=== PATIENT | female | born 1975 | race Hispanic/Latino ===

== ENCOUNTER 2017-03-31 11:27 | Outpatient (CLI) | payer MEDICARE ==
--- NOTE | 2017-03-31 13:49 | Cat Scan Report ---
FINAL REPORT EXAM: CT ANGIO HEAD HISTORY: HX OF CVA AND SAH TECHNIQUE: CTA of the Neck with IV contrast. Coronal and sagittal reconstructed imaging provided. PRIORS: None currently available. 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 Otherwise, the anterior and posterior circulation appear unremarkable. There is no dissection, vascular malformation, or significant vascular stenosis. There is no evidence for vasculitis. IMPRESSION: Streak artifact from metallic aneurysm coils. Otherwise, unremarkable.
== END 2017-03-31 11:28 | disposition home or self-care (01) ==
LOC: CT 11:27
PROVIDERS: ATTEND Internal Medicine
DX: I60.8 Other nontraumatic subarachnoid hemorrhage (principal); I63.9 Cerebral infarction, unspecified
CPT/HCPCS: 70496; Q9967